=== PATIENT | female | born 1950 | race Caucasian/White ===

== ENCOUNTER → 2022-07-18 | Outpatient (CLI) | payer MEDICARE ==
--- NOTE | 2022-07-18 18:13 | Diagnostic Imaging Report ---
Indication: Stress fracture left foot. Time of Exam: 11:20 AM Three views of the left foot were obtained. The metatarsals are intact. Phalanges are intact. Midfoot and hindfoot are unremarkable apart from a small plantar calcaneal spur. No fractures are seen. No periosteal reaction or stress reaction is seen. IMPRESSION: No acute abnormality is detected. Dictated by: Dictated on workstation # [id number]
== END ==
LOC: RAD FS 10:55
PROVIDERS: ATTEND Nurse Practitioner
DX: M84.375A Stress fracture, left foot, initial encounter for fracture (principal)
CPT/HCPCS: 73630